=== PATIENT | female | born 1940 | race Caucasian/White ===

== ENCOUNTER 2019-05-30 05:33 | Inpatient (IN) | payer MEDICARE, OTHER ==
[~2019-05-30] VITALS: Ht 160 cm; Wt 66.2 kg
[2019-05-30] MEDS ORDERED: NITROGLYCERIN 0.4 MG/TAB BOTTLE SL ONE ×3 (05:40→07:00)
[2019-05-30] MEDS ORDERED: ASPIRIN 325 MG TABLET ONE (05:40)
[2019-05-30] MEDS ORDERED: ASPIRIN 325 MG TABLET PO ONE (05:45)
[2019-05-30 05:56] LABS: BASOPHILS # (AUTO) 0.1 K/uL (0.0-8.0); BASOPHILS % (AUTO) 1.3 % (0.0-2.0); EOSINOPHILS # (AUTO) 0.4 K/uL (0.0-0.7); EOSINOPHILS % (AUTO) 5.1 % (0.0-7.0); HEMATOCRIT 38.3 % (31.2-41.9); HEMOGLOBIN 12.6 g/dL (10.9-14.3); LYMPHOCYTES # (AUTO) 1.7 K/uL (20.0-40.0); LYMPHOCYTES % (AUTO) 22.5 % (20.5-51.5); MEAN CORPUSCULAR HEMOGLOBIN 28.8 uug (24.7-32.8); MEAN CORPUSCULAR HGB CONC 33 g/dL (32.3-35.6); MEAN CORPUSCULAR VOLUME 87.7 fL (75.5-95.3); MONOCYTES # (AUTO) 0.5 K/uL (2.0-10.0); MONOCYTES % (AUTO) 6.7 % (0.0-11.0); NEUTROPHILS # (AUTO) 4.9 K/uL (1.8-8.9); NEUTROPHILS % (AUTO) 64.4 % (38.5-71.5); PLATELET COUNT (AUTO) 188 K/uL (179-408); RED BLOOD CELL COUNT(AUTO) 4.37 MIL/uL (3.63-4.92); WHITE BLOOD COUNT (AUTO) 7.7 K/uL (3.8-11.8)
[2019-05-30] MEDS ORDERED: BP medication PO (05:59)
[2019-05-30] MEDS ORDERED: METF-440 PO (05:59)
[2019-05-30] MEDS ORDERED: atorvastatin PO (05:59)
[2019-05-30] MEDS ORDERED: glybride PO (05:59)
[2019-05-30] MEDS ORDERED: RAMI10CA69 PO (05:59)
[2019-05-30 06:02] LABS: POTASSIUM 3.8 mmol/L (3.5-5.1)
[2019-05-30 06:14] LABS: BILIRUBIN,DIRECT 0.1 mg/dL (0.0-0.2); BILIRUBIN,TOTAL 0.3 mg/dL (0.2-1.0); TOTAL PROTEIN, SERUM 6.8 g/dL (6.4-8.2)
[2019-05-30] MEDS ORDERED: ACETAMINOPHEN 325 MG TABLET PO PRN (07:00)
[2019-05-30] MEDS ORDERED: MAGNESIUM HYDROXIDE 30 ML LIQUID UDC PO PRN (07:00)
[2019-05-30] MEDS ORDERED: HYDROCODONE/APAP 5-325MG TABLET PO PRN (07:00)
[2019-05-30] MEDS ORDERED: ONDANSETRON 4 MG/2 ML VIAL IV PRN (07:00)
[2019-05-30] MEDS ORDERED: Z GUARD REMEDY PASTE 57 GM TUBE TOP PRN (07:00)
[2019-05-30] MEDS ORDERED: ASPIRIN 81 MG TAB.CHEW PO ONE (07:00)
[2019-05-30 10:30] VITALS: BP 136/61
[2019-05-30] MEDS: RAMIPRIL 5 MG CAPSULE PO SCH (11:07)
[2019-05-30 16:33] VITALS: BP 132/58
[2019-05-30 16:45] VITALS: BP 133/60
[2019-05-30 17:02] VITALS: BP 134/64
[2019-05-30 17:30] VITALS: BP 136/68
[2019-05-30] MEDS: METFORMIN HCL 500 MG TABLET PO SCH (18:00)
[2019-05-30 20:00] VITALS: BP 135/63
[2019-05-30] MEDS ORDERED: ATORVASTATIN 20 MG TABLET PO SCH (21:00)
[2019-05-31 04:00] VITALS: BP 132/64
[2019-05-31 06:31] LABS: BASOPHILS % (AUTO) 0.7 % (0.0-2.0); EOSINOPHILS # (AUTO) 0.3 K/uL (0.0-0.7); EOSINOPHILS % (AUTO) 4.7 % (0.0-7.0); HEMATOCRIT 35.3 % (31.2-41.9); HEMOGLOBIN 11.7 g/dL (10.9-14.3); LYMPHOCYTES # (AUTO) 1.7 K/uL (20.0-40.0); MEAN CORPUSCULAR HGB CONC 33 g/dL (32.3-35.6); MEAN CORPUSCULAR VOLUME 87.6 fL (75.5-95.3); MONOCYTES # (AUTO) 0.4 K/uL (2.0-10.0); MONOCYTES % (AUTO) 6.1 % (0.0-11.0); NEUTROPHILS # (AUTO) 3.8 K/uL (1.8-8.9); NEUTROPHILS % (AUTO) 61.5 % (38.5-71.5); PLATELET COUNT (AUTO) 167 K/uL (179-408); RED BLOOD CELL COUNT(AUTO) 4.03 MIL/uL (3.63-4.92); WHITE BLOOD COUNT (AUTO) 6.2 K/uL (3.8-11.8)
[2019-05-31 06:43] LABS: CREATININE 0.9 mg/dL (0.6-1.3); MAGNESIUM 1.8 mg/dL (1.8-2.4); PHOSPHOROUS 3.8 mg/dL (2.5-4.9); POTASSIUM 4.1 mmol/L (3.5-5.1)
[2019-05-31] MEDS: METFORMIN HCL 500 MG TABLET PO SCH (07:46)
[2019-05-31 08:31] VITALS: BP 167/64
[2019-05-31] MEDS: RAMIPRIL 5 MG CAPSULE PO SCH (08:37)
[2019-05-31 08:45] VITALS: BP 130/62
[2019-05-31 11:00] VITALS: BP 159/63
[2019-05-31] MEDS ORDERED: ASPI-605 PO (11:47)
[2019-05-31] MEDS ORDERED: IV NORMAL SALINE 250 ML IV ONE (12:27)
[2019-05-31] MEDS ORDERED: IOHEXOL 350 100 ML INFUS..BTL ONE (12:27)
[2019-05-31] MEDS ORDERED: SWABABLE VALVE TRANSFER SET EA MC ONE (12:27)
== END 2019-05-31 14:00 | disposition home or self-care (01) | DRG 313 ==
LOC: ER 05:38 → TELE3 08:17
PROVIDERS: ADMIT Nurse Practitioner Acute Care; ATTEND Registered Nurse
PROC: B2211ZZ Computerized Tomography (CT Scan) of Multiple Coronary Arteries using Low Osmolar Contrast (ICD-10-PCS; principal; 2019-05-30)
DX: R07.89 Other chest pain (principal); Z85.118 Personal history of other malignant neoplasm of bronchus and lung; E11.9 Type 2 diabetes mellitus without complications; I11.9 Hypertensive heart disease without heart failure; R79.89 Other specified abnormal findings of blood chemistry; I25.10 Atherosclerotic heart disease of native coronary artery without angina pectoris; E78.5 Hyperlipidemia, unspecified; Z79.84 Long term (current) use of oral hypoglycemic drugs; Z79.899 Other long term (current) drug therapy; Z79.82 Long term (current) use of aspirin; Z90.13 Acquired absence of bilateral breasts and nipples; Z85.3 Personal history of malignant neoplasm of breast; Z90.2 Acquired absence of lung [part of]; Z82.49 Family history of ischemic heart disease and other diseases of the circulatory system
CPT/HCPCS: 36415; 70030-TC; 71045; 71275; 83735; 84100; 85025; 85730; 93005; 93307; A4663; G0378; J7050; Q9967